=== PATIENT | male | born 1985 | race Hispanic/Latino ===

== ENCOUNTER 2022-03-14 19:09 | Emergency (ER) | payer SELFPAY ==
--- NOTE | ~2022-03-14 | CT_ITS ---
EXAMINATION: CT brain wo con INDICATION: Head injury COMPARISON: None TECHNIQUE: Standard unenhanced head CT. The dose-length product (DLP) was 605.33 mGy-cm. The mA was a djusted according to patient size. Iterative reconstruction technique was employed. FINDINGS: There is no intracranial hemorrhage, acute infarction, or abnormal mass lesion. The ventric les are normal. There is no abnormal mass effect or midline shift. The rogers-white matter differentiat ion is normal. The basal cisterns are patent. The orbits are normal. The paranasal sinuses, mastoids and calvarium are normal. IMPRESSION: 1. No acute intracranial abnormality. Reviewed, dictated and finalized at location F.
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
[2022-03-14 19:12] VITALS: BP 140/93; PULSE 103; RESP 16; TEMP 36.8; O2SAT 97
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
[2022-03-14] MEDS: KETOROLAC 30 MG/ML VIAL (*BKC) IM (20:42)
[2022-03-14 21:33] VITALS: BP 140/78; PULSE 98; RESP 18; O2SAT 98
== END 2022-03-14 21:39 | disposition home or self-care (01) ==
PROVIDERS: Emergency Provider Emergency Medicine
DX: R51.9 Headache, unspecified (principal); N50.812 Left testicular pain; N50.811 Right testicular pain; V18.0XXA Pedal cycle driver injured in noncollision transport accident in nontraffic accident, initial encounter
CPT/HCPCS: 70450; 76870; 93976; 96372; 99284; J1885

== ENCOUNTER 2025-01-07 15:47 | Emergency (ER) | payer SELFPAY ==
--- NOTE | ~2025-01-07 | CT_ITS ---
EXAMINATION: CTA chest PE protocol DATE: 01/07/2025 16:43 CDT INDICATION: Right-sided chest pain and pressure TECHNIQUE: Computed tomographic angiography (CTA) of the chest was performed with 100 mL Omnipaque-35 0 intravenous contrast. The dose-length product was 198.82 mGy-cm. Maximum intensity projection 3D-re constructions of the aorta and other arteries were constructed by the technologist on a separate work station. COMPARISON: None. FINDINGS/OBSERVATIONS: PULMONARY ARTERIES: No filling defect is identified within the main or proximal pulmonary artery. The main pulmonary artery is not enlarged. THORACIC AORTA: No aneurysmal dilatation or dissection is present. The great vessels are intact LUNGS: Trace bibasilar atelectasis. The remainder of the lungs are clear. MEDIASTINUM: No morphologically suspicious or pathologically enlarged lymph nodes are identified with in the mediastinum or bilateral axilla. A small hiatal hernia is noted. BONES OF THE CHEST: No acute fracture. No significant degenerative disease. No lytic or blastic lesions. HEART: The heart is of normal size, without pericardial effusion. IMPRESSION: No pulmonary embolus. No thoracic aortic dissection. Trace bibasilar atelectasis. Small hiatal hernia. Reviewed, dictated and finalized at location A.
--- NOTE | 2025-01-07 15:49 | ECG_ITS ---
Test Date: 2025-01-07 15:52:29 Measurements Intervals [place] Rate: 92 P: 72 NM: 156 QRS: 22 QRSD: 108 T: 42 QT: 343 QTc: 426 Interpretive Statements SINUS RHYTHM INCOMPLETE RIGHT BUNDLE BRANCH BLOCK BORDERLINE ECG No previous ECG available for comparison Electronically Signed On 01-07-2025 17:33:31 CDT by Rubin Dupree D.O.
[2025-01-07 16:04] VITALS: BP 131/97; PULSE 100; RESP 18; TEMP 36.8; O2SAT 99
[2025-01-07 16:27] LABS: Basophils Percent Auto 0.2 % (0.2-1.2); Eosinophils Absolute Auto 0.1 K/mm3 (0-0.3); Eosinophils Percent Auto 1.5 % (0-4.4); Hematocrit 40.2 % (42.0-52.0); Hemoglobin 13.8 g/dL (14.0-18.0); Immature Granulocyte Absolute 0.01 K/mm3 (0.00-0.031); Immature Granulocyte Percent A 0.2 % (0-0.5); Lymphocytes Absolute Auto 2.18 K/mm3 (0.9-3.2); Lymphocytes Percent Auto 46.1 % (18.3-44.2); Mean Corpuscular HGB Conc 34.3 g/dl (32-36); Mean Corpuscular Volume 87.4 fl (80-100); Mean Platelet Volume 9.1 fl (7.4-10.4); Monocytes Absolute Auto 0.2 K/mm3 (0.1-0.6); Monocytes Percent Auto 5.1 % (2.6-8.5); Neutrophils Absolute Auto 2.2 K/mm3 (1.3-6.7); Neutrophils Percent Auto 46.9 % (45.5-73.1); Platelet Count Result 266 k/mm3 (150-375); Red Cell Distribution Width 13.6 % (11.5-14.5); White Blood Count 4.7 K/mm3 (4.5-10.0)
--- NOTE | 2025-01-07 16:30 | ED.GENADULT ---
HPI - General Adult General Chief complaint: Chest Pain Stated complaint: R side CP Time Seen by Provider: 01/07/25 16:03 History of Present Illness HPI narrative: 31-year-old male presented to the emergency department for evaluation for right-sided chest pain. Patient reports the chest pain has been intermittent over the course of the last week. Patient states pain is worsened with deep inspiration and with movement. Patient denies any cardiac history, patient denies any falls or injuries. Patient denies any coughs colds or fevers. Related Data Allergies Allergy/AdvReac Type Severity Reaction Status Date / Time No Known Allergies Allergy Verified 01/07/25 16:54 Review of Systems Review of Systems: All systems reviewed & are unremarkable except as noted in HPI and below Exam Narrative: APPEARANCE: Well appearing, no pain, no distress, well-nourished. HEAD: normocephalic, atraumatic. EYES: PERRLA/EOMI, conjunctivae clear. NOSE: Normal no drainage EARS:TMS clear with good light reflex. THROAT: Pharynx clear, no exudate. NECK: Supple. No adenopathy, no masses. RESPIRATORY: Airway patent, respirations nonlabored. Clear to auscultation bilaterally, no rales, rhonchi, wheezing. CARDIOVASCULAR: Regular rate and rhythm without murmurs rubs or gallops. ABDOMINAL: Soft, nontender, nondistended, normal bowel sounds MUSCULOSKELETAL: Reproducible right-sided chest wall tenderness to palpation NEURO: Alert. Cranial nerves II through XII intact. Good gait. Good coordination SKIN: Warm, dry. Normal Color Course Vital Signs Vital signs: Vital Signs Temperature 98.2 F 01/07/25 16:04 Pulse Rate 100 01/07/25 16:04 Respiratory Rate 18 01/07/25 16:04 Blood Pressure 131/97 H 01/07/25 16:04 Pulse Oximetry 99 01/07/25 16:04 Oxygen Delivery Room Air 01/07/25 16:04 Temperature 98.2 F 01/07/25 16:04 Pulse Rate 100 01/07/25 16:04 Respiratory Rate 18 01/07/25 16:04 Blood Pressure 131/97 H 01/07/25 16:04 Pulse Oximetry 99 01/07/25 16:04 Oxygen Delivery Room Air 01/07/25 16:04 Medical Decision Making [facility] Narrative Medical decision making narrative: 39-year-old male presenting emergency department for evaluation for right-sided chest wall pain and tenderness. Patient is currently afebrile with no leukocytosis hemoglobin of 13.8. INR is 1.0, no acute abnormalities on his CMP patient's troponin was negative. CTA shows no evidence of pulmonary embolism. Patient is being treated for suspected pleurisy versus musculoskeletal pain. Patient was encouraged close follow-up with primary care physician. Vital Signs Vital Signs: Vital Signs Temperature 98.2 F 01/07/25 16:04 Pulse Rate 100 01/07/25 16:04 Respiratory Rate 18 01/07/25 16:04 Blood Pressure 131/97 H 01/07/25 16:04 Pulse Oximetry 99 01/07/25 16:04 Oxygen Delivery Room Air 01/07/25 16:04 Temperature 98.2 F 01/07/25 16:04 Pulse Rate 100 01/07/25 16:04 Respiratory Rate 18 01/07/25 16:04 Blood Pressure 131/97 H 01/07/25 16:04 Pulse Oximetry 99 01/07/25 16:04 Oxygen Delivery Room Air 01/07/25 16:04 Lab Data 01/07/25 16:21 01/07/25 16:34 Labs: Lab Results 01/07/25 01/07/25 Range/Units 16:21 16:34 WBC 4.7 (4.5-10.0) K/mm3 RBC 4.60 (4.6-6.20) M/mm3 Hgb 13.8 L (14.0-18.0) g/dL Hct 40.2 L (42.0-52.0) % MCV 87.4 (80-100) fl MCH 30.0 (26-34) pg MCHC 34.3 (32-36) g/dl RDW 13.6 (11.5-14.5) % Plt Count 266 (150-375) k/mm3 MPV 9.1 (7.4-10.4) fl Immature Gran % (Auto) 0.2 (0-0.5) % Neut % (Auto) 46.9 (45.5-73.1) % Lymph % (Auto) 46.1 H (18.3-44.2) % [place] % (Auto) 5.1 (2.6-8.5) % Eos % (Auto) 1.5 (0-4.4) % Baso % (Auto) 0.2 (0.2-1.2) % Lymph # (Auto) 2.18 (0.9-3.2) K/mm3 [place] # (Auto) 0.2 (0.1-0.6) K/mm3 Eos # (Auto) 0.1 (0-0.3) K/mm3 Baso # (Auto) 0.0 (0.0-0.1) K/mm3 Abs Immat Gran (auto) 0.01 (0.00-0.031) K/mm3 Absolute Neuts (auto) 2.2 (1.3-6.7) K/mm3 Absolute Nucleated RBC 0.000 (0.0-0.012) K/mm3 Nucleated RBC % 0.0 (0.0-0.2) % PT 13.4 (11.1-14.7) Seconds INR 1.0 APTT 27.1 (22.3-36.8) Seconds Sodium 136 L (137-145) mmol/L Potassium 3.6 (3.4-5.0) mmol/L Chloride 102 (98-107) mmol/L Carbon Dioxide 24 (22-30) mmol/L Anion Gap 10 (4-12) mmol/L BUN 14 (9-20) mg/dL Creatinine 0.61 L 0.60 L (0.7-1.3) mg/dL Estim Creat Clear Calc 108 110 ml/min Estimated GFR > 60 > 60 (59 - ) Glucose 101 (65-110) mg/dL Calcium 9.2 (8.4-10.2) mg/dL Total Bilirubin 0.5 (0.2-1.3) mg/dL AST 26 (17-59) U/L ALT 19 (6-50) U/L Alkaline Phosphatase 71 (38-126) U/L Troponin I < 0.012 (0.000-0.034) ng/mL Total Protein 8.0 (6.3-8.2) g/dL Albumin 4.6 (3.5-5.1) g/dL Lipase 105 (23-300) U/L Discharge Plan Discharge Clinical Impression: Atypical chest pain Patient Disposition: Home, Self-Care Condition: Stable Instructions: Antibiotic Form, Chest Wall Pain (ED) Additional Instructions: Ibuprofen for pain control. Flexeril for muscular chest pain. Have close follow-up with your primary care physician for additional outpatient cardiac testing. If you have any worsening symptoms then please call or return to the emergency department. Patient Language: Hungarian Prescriptions: New cyclobenzaprine 10 mg tablet 10 mg PO BID PRN (Reason: muscle spasm) Qty: 14 0RF Follow-up/Referrals: PHYSICIAN,DIE SIZER [Primary Care Provider] - Quality HEART score for chest pain patients History: slightly suspicious ECG: normal Age: < or = to 45 years Risk factors: 1 or 2 risk factors Troponin: < or = to 1x normal limit Heart score: 1
[2025-01-07 16:38] LABS: Estimated CRCL calculation 110 ml/min; Estimated Glomerular Filt Rate > 60
[2025-01-07 16:45] LABS: Partial Thromboplastin Time 27.1 Seconds (22.3-36.8); Prothrombin Time 13.4 Seconds (11.1-14.7)
[2025-01-07 16:50] LABS: Alanine Aminotransferase 19 U/L (6-50); Albumin Level 4.6 g/dL (3.5-5.1); Alkaline Phosphatase 71 U/L (38-126); Anion Gap 10 mmol/L (4-12); Aspartate Amino Transferase 26 U/L (17-59); Bilirubin,Total 0.5 mg/dL (0.2-1.3); Blood Urea Nitrogen 14 mg/dL (9-20); Calcium 9.2 mg/dL (8.4-10.2); Carbon Dioxide 24 mmol/L (22-30); Chloride 102 mmol/L (98-107); Estimated CRCL calculation 108 ml/min; Estimated Glomerular Filt Rate > 60; Glucose 101 mg/dL (65-110); Lipase 105 U/L (23-300); Potassium 3.6 mmol/L (3.4-5.0); Sodium 136 mmol/L (137-145)
[2025-01-07] MEDS: ASPIRIN 81 MG CHEWABLE TABLET 324 MG PO (16:57)
[2025-01-07] MEDS: KETOROLAC 15 MG/ML VIAL (*BKC) IV PUSH (16:57)
[2025-01-07 17:02] LABS: Troponin I < 0.012 ng/mL (0.000-0.034)
--- OUTSIDE RECORDS SUMMARY | 2025-01-07 17:12 | XMS_ITS | Clinical Summary ---
Author Organization [facility] Address [address] [place] [address] Care Team Providers Care Ecdis N Navigation Operator Name Role Phone No, Physician Primary Care Provider [phone] No, Physician Unavailable No, Physician Unavailable Allergies No known active allergies Medications ciprofloxacin (CIPRO) 500 mg tabletIndications: Abdominal/Pelvic Infection Take 1 tablet (500 mg total) by mouth 2 (two) times a day. 14 tablet 03/15/20 18 Active polyethylene glycol (MIRALAX) 17 gram packetIndications: constipation Take 1 packet (17 g total) by mouth daily 10 packet 12/01/19 22 Active hydrocortisone (ANUSOL-HC) 25 mg suppository Insert 1 suppository (25 mg total) into the rectum 2 (two) times a day 12 suppository 11/08/19 22 Active ondansetron (ZOFRAN) 4 mg tablet Take 1 tablet (4 mg total) by mouth every 6 (six) hours 12 tablet 12/29/19 22 Active dicyclomine (BENTYL) 20 mg tablet Take 1 tablet (20 mg total) by mouth 2 (two) times a day 20 tablet 12/29/19 22 Active traMADoL (ULTRAM) 50 mg tablet Take 1 tablet (50 mg total) by mouth every 6 (six) hours as needed for pain 15 tablet 01/18/20 22 Active naproxen (NAPROSYN) 500 mg tablet Take 1 tablet (500 mg total) by mouth 2 (two) times a day with meals 30 tablet 03/11/20 22 Active ondansetron ODT (ZOFRAN-ODT) 4 mg disintegrating tablet Take 1 tablet (4 mg total) by mouth every 8 (eight) hours as needed for nausea or vomiting 10 tablet 03/14/20 23 Active ibuprofen (ADVIL,MOTRIN) 600 mg tablet Take 1 tablet (600 mg total) by mouth every 6 (six) hours as needed for pain 30 tablet 06/13/20 24 Active Active Problems No known active problems Encounters Date Type Department Care Team Description 10/14/2024 6:50 PM MECHATRONICS ENGINEER - 10/14/2024 8:37 PM MECHATRONICS ENGINEER Emergency [facility] [address] [place] [address] Influenza A (Primary Dx) Discharge Disposition: Discharge to home or self care from Last 3 Months Immunizations Immunization Administration Dates Next Due Rabies Immune Globulin 02/21/2022 Rabies Vaccine 03/11/2022(),03/05/2022,02/29/20,02/21/2022 Surgical History Surgery Date Site/Laterality Comments NO PAST SURGERIES Medical History Medical History Date Comments Uses Citizen Of [place] as primary spoken language Social History Tobacco Use Types Packs/Day Years Used Date Smoking Tobacco: Former Smokeless Tobacco: Never Alcohol Use Standard Drinks/Week Comments No 0 (1 standard drink = 0.6 oz pur e alcohol) Personal Safety Answer Date Recorded Have you ever been in or are you currently in a harmful physical or emotional relationship or is someone making you feel afraid or unsafe? Denies 10/14/2024 Sex and Gender Information Value Date Recorded Sex Assigned at Not on file Legal Sex Male 9:47 AM CDT Gender Identity Not on file Sexual Orientation Not on file Obstetrics History Last Filed Vital Signs Vital Sign Reading Time Taken Comments Blood Pressure 117/88 10/14/2024 8:35 PM MECHATRONICS ENGINEER Pulse 115 10/14/2024 8:35 PM MECHATRONICS ENGINEER Temperature 37.8 C (100.1 F) 10/14/2024 8:35 PM MECHATRONICS ENGINEER Respiratory Rate 16 10/14/2024 8:35 PM MECHATRONICS ENGINEER Oxygen Saturation 97% 10/14/2024 8:35 PM MECHATRONICS ENGINEER Inhaled Oxygen Concentration - - Weight 59.9 kg (132 lb) 10/14/2024 5:17 PM MECHATRONICS ENGINEER Height 163 cm (5' 4.17 ) 06/13/2024 1:04 AM CDT Body Mass Index 22.54 06/13/2024 1:04 AM CDT Plan of Treatment Health Maintenance Due Date Last Done Comments Depression Screening 1986 Hepatitis C Screening 1986 Varicella Vaccines (1 of 2 - 13+ 2-dose series) 1999 Hepatitis B Screening 2004 Regular Well Visit/Exam 18-64 2004 Influenza Vaccine (#1) 2024 DTaP/Tdap/Td Vaccine (2 - Td or Tdap) 02/24/2032 02/23/2022 HPV Vaccines Aged Out No longer eligi ble based on patient's age to complete this topic Pneumococcal vaccine <65 Aged Out No longer eligible based on patient's age to complete this topic Procedures Procedure Name Priority Date/Time Associated Diagnosis Comments XR CHEST 1 VIEW ED 10/14/2024 6:53 PM MECHATRONICS ENGINEER INFLUENZA A/B, RSV, AND COVID-19 PCR Routine 10/14/2024 5:21 PM MECHATRONICS ENGINEER from Last 3 Months Results * XR Chest 1 Vw Portable (10/14/2024 6:53 PM MECHATRONICS ENGINEER) Anatomical Region Laterality Modality Body, Chest N/A Computed Radiogr aphy 10/14/2024 7:08 PM MECHATRONICS ENGINEER Narrative 10/14/2024 7:09 PM MECHATRONICS ENGINEER EXAM DESCRIPTION: XR CHEST 1 VIEW REASON FOR STUDY: cough C/o fever and chills x 1 week. Former smoker. No cardiac hx No surgery TECHNIQUE: Single frontal radiographic view(s) of the chest. COMPARISON: 02/22/2024 FINDINGS: The heart, mediastinum, and pulmonary vasculature are grossly stable. There is no definite evidence of a pneumothorax. There is no definite evidence of pleural effusion. There are mild patchy bibasilar airspace opacities. The osseous structures are acutely grossly unremarkable. IMPRESSION: Mild patchy bibasilar airspace opacities, which is likely related to subsegmental atelectasis and less likely developing airspace disease. THIS IS AN ELECTRONICALLY VERIFIED FINAL REPORT 10/14/2024 7:09 PM - Electronically signed by Ghislaine Taylor D.O. PS: PS Report ID: [id number] Reading Location: [id number] Procedure Note Ghislaine Taylor DO - 10/14/2024 EXAM DESCRIPTION: XR CHEST 1 VIEW REASON FOR STUDY: cough C/o fever and chills x 1 week. Former smoker. No cardiac hx No surgery TECHNIQUE: Single frontal radiographic view(s) of the chest. COMPARISON: 02/22/2024 FINDINGS: The heart, mediastinum, and pulmonary vasculature are grossly stable.There is no definite evidence of a pneumothorax. There is no definite evidenceof pleural effusion. There are mild patchy bibasilar airspace opacities. The osseous structures are acutely grossly unremarkable. IMPRESSION: Mild patchy bibasilar airspace opacities, which is likely related to subsegmental atelectasis and less likely developing airspace disease. THIS IS AN ELECTRONICALLY VERIFIED FINAL REPORT 10/14/2024 7:09 PM - Electronically signed by Ghislaine Taylor D.O. PS: PS Report ID: [id number] Reading Location: [id number] Katharina OSPINA IMG XR PROCEDURES Final Result * (ABNORMAL) Influenza A/B, RSV, and COVID-19 PCR Nasopharyngeal (10/14/2024 5:21 PM MECHATRONICS ENGINEER) COVID-19 RNA Negative Negative Influenza A RNA Positive(A) Negative [facility] ([place]) Influenza B RNA Negative Negative [facility] ([place]) RSV RNA Negative Negative [facility] ([place]) Comment: Interpretive data: Testing performed by [facility]. This test is performed using the [employer] Xpert Xpress CoV-2/Flu/RSV plus assay. This is a multiplex, real- time reverse transcriptase PCR assay intended for the qualitative detection of nucleic acid from SARS-CoV-2, influenza A, influenza B, and respiratory syncytial virus. This assay has been cleared by the [place] Food and Drug administration. The performance characteristics have been verified by the [facility]. Results must be considered in the clinical context, and a negative result does not rule out infection. Interpretive Data last revised 2023 Nasopharyngeal 10/14/2024 5: 21 PM MECHATRONICS ENGINEER 10/14/2024 5:30 PM MECHATRONICS ENGINEER Narrative DAVID MORALES ([place]) - 10/14/2024 6:08 PM MECHATRONICS ENGINEER Is the Patient experiencing symptoms consistent with COVID?->Yes us Mi Mayfield MD LAB MICROBIOLOGY - GENERAL ORDERABLES Final Result DAVID MORALES (DEXTER) 1 [facility] [place] [address] from Last 3 Months Care Teams Ecdis N Navigation Operator Relationship Specialty Start Date End Date No, Physician PCP - General 11/08/21 No, Physician 11/08/21 No, Physician 11/08/21
--- OUTSIDE RECORDS SUMMARY | 2025-01-07 17:12 | XMS_ITS | Referral Summary ---
Author Organization [facility] Address [address] [place] [address] Care Team Providers Care Sales Market Leader Name Role Phone No, Physician Primary Care Provider [phone] No, Physician Unavailable No, Physician Unavailable Encounters Date Type Department Care Team Description 10/14/2024 6:50 PM CAGE CLERK - 10/14/2024 8:37 PM [facility] Emergency [facility] Emergency Department [address] [place] [address] Influenza A (Primary Dx) Discharge Disposition: Discharge to home or self care from Last 3 Months Allergies No known active allergies Medications ciprofloxacin [...] Active Active Problems No known active problems Immunizations Immunization Administration Dates Next Due Rabies Immune Globulin 02/21/2022 Rabies Vaccine 03/11/2022(),03/05/2022,02/29/20 22,02/21/2022 Social History Tobacco Use Types Packs/Day Years [...] on file Sexual Orientation Not on file Last Filed Vital Signs Vital Sign Reading Time Taken Comments Blood Pressure 117/88 10/14/2024 8:35 PM CAGE CLERK Pulse 115 10/14/2024 8:35 PM CAGE CLERK Temperature 37.8 C (100.1 F) 10/14/2024 8:35 PM CAGE CLERK Respiratory Rate 16 10/14/2024 8:35 PM CAGE CLERK Oxygen Saturation 97% 10/14/2024 8:35 PM CAGE CLERK Inhaled Oxygen Concentration - - Weight 59.9 kg (132 lb) 10/14/2024 5:17 PM CAGE CLERK Height 163 cm (5' 4.17 ) 06/13/2024 1:04 AM CDT Body Mass Index 22.54 06/13/2024 1:04 AM CDT Plan of Treatment Not on file Procedures Procedure Name Priority Date/Time Associated Diagnosis Comments XR CHEST 1 VIEW ED 10/14/2024 6:53 PM CAGE CLERK INFLUENZA A/B, RSV, AND COVID-19 PCR Routine 10/14/2024 5:21 PM CAGE CLERK from Last 3 Months Results * XR Chest 1 Vw Portable (10/14/2024 6:53 PM CAGE CLERK) Anatomical Region Laterality Modality Body, Chest N/A Computed Radiogr aphy 10/14/2024 7:08 PM CAGE CLERK Narrative 10/14/2024 7:09 PM CAGE CLERK EXAM DESCRIPTION: XR CHEST 1 VIEW REASON [...] Ghislaine Taylor D.O. PS: PS Report ID: [id number] Reading Location: [id number] Procedure Note Ghislaine Taylor DO - 10/14/2024 [...] Ghislaine Taylor D.O. PS: PS Report ID: [id number] Reading Location: [place] [address] Katharina OSPINA IMG XR PROCEDURES Final Result * (ABNORMAL) Influenza A/B, RSV, and COVID-19 PCR Nasopharyngeal (10/14/2024 5:21 PM CAGE CLERK) COVID-19 RNA Negative Negative Influenza A RNA Positive(A) Negative [facility] ([place]) Influenza B RNA Negative Negative [facility] ([place]) RSV RNA Negative Negative [facility] ([place]) Comment: Interpretive data: Testing performed by [facility]. This test is performed using the [employer] Xpert Xpress CoV-2/Flu/RSV plus assay. This is a multiplex, real- time reverse transcriptase PCR assay intended for the qualitative detection of nucleic acid from SARS-CoV-2, influenza A, influenza B, and respiratory syncytial virus. This assay has been cleared by the [place] Food and Drug administration. The performance characteristics have been verified by the [facility]. Results must be considered in the clinical context, and a negative result does not rule out infection. Interpretive Data last revised 2023 Nasopharyngeal 10/14/2024 5: 21 PM CAGE CLERK 10/14/2024 5:30 PM CAGE CLERK Narrative [facility] ([place]) - 10/14/2024 6:08 PM CAGE CLERK Is the Patient experiencing symptoms consistent with COVID?->Yes Mi Mayfield MD LAB MICROBIOLOGY - GENERAL ORDERABLES Final Result [facility] ([place]) 1 [facility] Department [place] [address] from Last 3 Months Care Teams Sales Market Leader Relationship Specialty Start Date End Date No, Physician PCP - General 11/08/21 No, Physician 11/08/21 No, Physician 11/08/21
--- OUTSIDE RECORDS SUMMARY | 2025-01-07 17:42 | XMS_ITS | Clinical Summary ---
Author Organization [facility] Address [address] [place] [address] Care Team Providers Care Supervisor Sterile Processing Name Role Phone No, Physician Primary Care Provider [phone] No, Physician Unavailable No, Physician Unavailable Allergies [...] Department Care Team Description 10/14/2024 6:50 PM [facility] - 10/14/2024 8:37 PM [facility] Emergency [facility] Emergency Department [address] [place] [address] Influenza A (Primary Dx) Discharge Disposition: Discharge to home or self care from Last 3 Months Immunizations Immunization Administration Dates Next Due Rabies Immune Globulin 02/21/2022 Rabies Vaccine 03/11/2022(),03/05/2022,02/29/20,02/21/2022 Surgical History Surgery Date Site/Laterality Comments NO PAST SURGERIES Medical History Medical History Date Comments Uses Turkish as primary spoken language Social History Tobacco [...] Comments Blood Pressure 117/88 10/14/2024 8:35 PM [facility] Pulse 115 10/14/2024 8:35 PM [facility] Temperature 37.8 C (100.1 F) 10/14/2024 8:35 PM [facility] Respiratory Rate 16 10/14/2024 8:35 PM [facility] Oxygen Saturation 97% 10/14/2024 8:35 PM [facility] Inhaled Oxygen Concentration - - Weight 59.9 kg (132 lb) 10/14/2024 5:17 PM [facility] Height 163 cm (5' 4.17 ) 06/13/2024 1:04 AM CDT Body Mass Index 22.54 06/13/2024 1:04 AM CDT Plan of Treatment Health Maintenance Due Date Last Done Comments Depression Screening 1986 Hepatitis C Screening 1986 Varicella Vaccines (1 of 2 - 13+ 2-dose series) 1999 Hepatitis B Screening 2004 Regular Well Visit/Exam 18-64 2004 Influenza Vaccine (Season Ended) 2025 DTaP/Tdap/Td Vaccine (2 - Td or Tdap) 02/24/2032 02/23/2022 HPV Vaccines Aged Out No longer eligi ble based on patient's age to complete this topic Pneumococcal vaccine <65 Aged Out No longer eligible based on patient's age to complete this topic Procedures Procedure Name Priority Date/Time Associated Diagnosis Comments XR CHEST 1 VIEW ED 10/14/2024 6:53 PM [facility] INFLUENZA A/B, RSV, AND COVID-19 PCR Routine 10/14/2024 5:21 PM [facility] from Last 3 Months Results * XR Chest 1 Vw Portable (10/14/2024 6:53 PM [facility]) Anatomical Region Laterality Modality Body, Chest N/A Computed Radiogr aphy 10/14/2024 7:08 PM [facility] Narrative 10/14/2024 7:09 PM [facility] EXAM DESCRIPTION: XR CHEST 1 VIEW REASON [...] Ghislaine Taylor D.O. PS: PS Report ID: [id number] Reading Location: [id number] Procedure Note Ghislaine Taylor DO - 10/14/2024 [...] Ghislaine Taylor D.O. PS: PS Report ID: [id number] Reading Location: [id number] Katharina OSPINA IMG XR PROCEDURES Final Result * (ABNORMAL) Influenza A/B, RSV, and COVID-19 PCR Nasopharyngeal (10/14/2024 5:21 PM [facility]) COVID-19 RNA Negative Negative Influenza A RNA Positive(A) Negative [facility] ([place]) Influenza B RNA Negative Negative [facility] ([place]) RSV RNA Negative Negative [facility] ([place]) Comment: Interpretive data: Testing performed by [facility]. This test is performed using the [id number] Xpert Xpress CoV-2/Flu/RSV plus assay. This is a multiplex, real- time reverse transcriptase PCR assay intended for the qualitative detection of nucleic acid from SARS-CoV-2, influenza A, influenza B, and respiratory syncytial virus. This assay has been cleared by the [place] Food and Drug administration. The performance characteristics have been verified by the [facility]. Results must be considered in the clinical context, and a negative result does not rule out infection. Interpretive Data last revised 2023 Nasopharyngeal 10/14/2024 5: 21 PM [facility] 10/14/2024 5:30 PM [facility] Narrative [facility] ([place]) - 10/14/2024 6:08 PM [facility] Is the Patient experiencing symptoms consistent with COVID?->Yes us Mi Mayfield MD LAB MICROBIOLOGY - GENERAL ORDERABLES Final Result [facility] ([place]) 1 [facility] Department [place] [address] from Last 3 Months Care Teams Supervisor Sterile Processing Relationship Specialty Start Date End Date No, Physician PCP - General 11/08/21 No, Physician 11/08/21 No, Physician 11/08/21
--- OUTSIDE RECORDS SUMMARY | 2025-01-07 17:42 | XMS_ITS | Referral Summary ---
Author Organization [facility] Address [address] [place] [address] Care Team Providers Care Behavior Specialist Name Role Phone No, Physician Primary Care Provider [phone] No, Physician Unavailable No, Physician Unavailable Encounters Date Type Department Care Team Description 10/14/2024 6:50 PM MATERIALS PLANNER/PRODUCTION PLANNER - 10/14/2024 8:37 PM [facility] Emergency [facility] Emergency Department [address] [place] [address] Influenza A (Primary Dx) Discharge Disposition: Discharge [...] Comments Blood Pressure 117/88 10/14/2024 8:35 PM MATERIALS PLANNER/PRODUCTION PLANNER Pulse 115 10/14/2024 8:35 PM MATERIALS PLANNER/PRODUCTION PLANNER Temperature 37.8 C (100.1 F) 10/14/2024 8:35 PM MATERIALS PLANNER/PRODUCTION PLANNER Respiratory Rate 16 10/14/2024 8:35 PM MATERIALS PLANNER/PRODUCTION PLANNER Oxygen Saturation 97% 10/14/2024 8:35 PM MATERIALS PLANNER/PRODUCTION PLANNER Inhaled Oxygen Concentration - - Weight 59.9 kg (132 lb) 10/14/2024 5:17 PM MATERIALS PLANNER/PRODUCTION PLANNER Height 163 cm (5' 4.17 ) 06/13/2024 1:04 AM CDT Body Mass Index 22.54 06/13/2024 1:04 AM CDT Plan of Treatment Not on file Procedures Procedure Name Priority Date/Time Associated Diagnosis Comments XR CHEST 1 VIEW ED 10/14/2024 6:53 PM MATERIALS PLANNER/PRODUCTION PLANNER INFLUENZA A/B, RSV, AND COVID-19 PCR Routine 10/14/2024 5:21 PM MATERIALS PLANNER/PRODUCTION PLANNER from Last 3 Months Results * XR Chest 1 Vw Portable (10/14/2024 6:53 PM MATERIALS PLANNER/PRODUCTION PLANNER) Anatomical Region Laterality Modality Body, Chest N/A Computed Radiogr aphy 10/14/2024 7:08 PM MATERIALS PLANNER/PRODUCTION PLANNER Narrative 10/14/2024 7:09 PM MATERIALS PLANNER/PRODUCTION PLANNER EXAM DESCRIPTION: XR CHEST 1 VIEW REASON [...] Ghislaine Taylor D.O. PS: PS Report ID: [id number] Reading Location: [id number] Procedure Note Ghislaine Taylor DO - 10/14/2024 [...] Ghislaine Taylor D.O. PS: PS Report ID: [id number] Reading Location: [place] [address] Katharina OSPINA IMG XR PROCEDURES Final Result * (ABNORMAL) Influenza A/B, RSV, and COVID-19 PCR Nasopharyngeal (10/14/2024 5:21 PM MATERIALS PLANNER/PRODUCTION PLANNER) COVID-19 RNA Negative Negative Influenza A RNA Positive(A) Negative [facility] ([place]) Influenza B RNA Negative Negative [facility] ([place]) RSV RNA Negative Negative [facility] ([place]) Comment: Interpretive data: Testing performed by [facility]. This test is performed using the [employer] Xpert Xpress CoV-2/Flu/RSV plus assay. This is a multiplex, real- time reverse transcriptase PCR assay intended for the qualitative detection of nucleic acid from SARS-CoV-2, influenza A, influenza B, and respiratory syncytial virus. This assay has been cleared by the [place] Food and Drug administration. The performance characteristics have been verified by the [facility]. Results must be considered in the clinical context, and a negative result does not rule out infection. Interpretive Data last revised 2023 Nasopharyngeal 10/14/2024 5: 21 PM MATERIALS PLANNER/PRODUCTION PLANNER 10/14/2024 5:30 PM MATERIALS PLANNER/PRODUCTION PLANNER Narrative [facility] ([place]) - 10/14/2024 6:08 PM MATERIALS PLANNER/PRODUCTION PLANNER Is the Patient experiencing symptoms consistent with COVID?->Yes Mi Mayfield MD LAB MICROBIOLOGY - GENERAL ORDERABLES Final Result [facility] ([place]) 1 [facility] Department [place] [address] from Last 3 Months Care Teams Behavior Specialist Relationship Specialty Start Date End Date No, Physician PCP - General 11/08/21 No, Physician 11/08/21 No, Physician 11/08/21
== END 2025-01-07 18:08 | disposition home or self-care (01) ==
PROVIDERS: Emergency Provider Emergency Medicine
DX: R07.89 Other chest pain (principal)
CPT/HCPCS: 36415; 71275; 80053; 83690; 84484; 85025; 85610; 85730; 93005; 96374; 99284; A9270; J1885; Q9967